=== PATIENT | male | born 1990 | race Caucasian/White ===

== ENCOUNTER 2018-02-01 19:46 | Emergency (ER) | payer MEDICAID ==
[~2018-02-01] VITALS: Ht 160 cm; Wt 66.2 kg
[2018-02-01 20:15] VITALS: Ht 160 cm; Wt 66.2 kg
[2018-02-01 23:03] VITALS: BP 140/56
== END 2018-02-01 23:03 | disposition home or self-care (01) ==
LOC: ED 19:46
DX: M25.462 Effusion, left knee (principal); R03.0 Elevated blood-pressure reading, without diagnosis of hypertension
CPT/HCPCS: J1885